=== PATIENT | female | born 1940 | race Caucasian/White ===

== ENCOUNTER 2019-06-26 15:33 | Emergency (ER) | payer MEDICARE, OTHER ==
[~2019-06-26] VITALS: Ht 160 cm; Wt 65.8 kg
[~2019-06-26 15:33] MED LIST: ACET325 PO; ALBU90OI61 INH; ALPR.25 PO; ANTIBIOTIC; ASCO500 PO; ASPI81EC PO; BUME2 PO; CLIN300 PO; CODACE30 PO; CRUTCH4 XX; Coumadin2 MG PO; DOCU100 PO; ENOX100I SC; FERR325 PO; FLUSAL2505 INH; HYDR1TAB94 PO; IBUP800 PO; LEVSOD88 PO; LORA.5 PO; METO25ER PO; METRIBP PO; MULVITMINF PO; NEBI5 PO; Norco 5-325 Ta1 EACH PO; POTCHL20ER PO; SERT25 PO; THYROID; TYLENOL; VITS; WARF2 PO; WARF3 PO; [UNRECOGNIZED DRUG - REMARK]
[2019-06-26 16:56] LABS: BASOPHILS PERCENT AUTO 1 % (0-2); EOSINOPHILS ABSOLUTE AUTO 0.23 K/mm3 (0.00-0.68); EOSINOPHILS PERCENT AUTO 3 % (0-6); Hematocrit 40.2 % (33.0-51.0); Hemoglobin 13.1 g/dL (11.5-16.0); IMMATURE GRAN ABSOLUTE AUTO 0.04 K/mm3 (0.00-0.10); IMMATURE GRAN PERCENT AUTO 1 % (0-1); LYMPHOCYTES ABSOLUTE AUTO 2.37 K/mm3 (0.84-5.20); LYMPHOCYTES PERCENT AUTO 32 % (21-46); MONOCYTES ABSOLUTE AUTO 0.86 K/mm3 (0.16-1.47); MONOCYTES PERCENT AUTO 12 % (4-13); Mean Corpuscular HGB 33.1 pg (26.0-34.0); Mean Corpuscular HGB Conc 32.6 g/dL (31.5-36.5); Mean Corpuscular Volume 102 fL (80-100); Mean Platelet Volume 10.7 fL (9.1-12.4); NEUTROPHILS ABSOLUTE AUTO 3.79 K/mm3 (1.96-9.15); NEUTROPHILS PERCENT AUTO 51 % (41-73); Platelet Count 274 K/mm3 (150-400); RDW Coefficient Variation 12.8 % (11.7-14.2); RDW Standard Deviation 47.9 fL (35.1-46.3); Red Blood Cell Count 3.96 M/mm3 (3.80-5.20); White Blood Cell Count 7.39 K/mm3 (4.00-11.30)
[2019-06-26 17:20] LABS: Alanine Aminotransfer (ALT/SGP 34 U/L (12-78); Albumin, Blood 3.9 g/dL (3.4-5.0); Albumin/Globulin Ratio 1.1 (0.8-1.8); Alk Phos 117 U/L (50-136); Anion Gap 4 mmol/L (6-16); Aspartate Aminotrans (AST/SGOT 30 U/L (12-37); Bilirubin, Total 0.2 mg/dL (0.1-1.0); Blood Urea Nitrogen 23 mg/dL (8-24); CO2, Blood 30 mmol/L (21-32); Calcium, Blood 9.2 mg/dL (8.5-10.1); Chloride, Blood 102 mmol/L (98-108); Creatinine, Blood 0.88 mg/dL (0.40-1.00); Globulin, Blood 3.5 g/dL (2.2-4.0); Glomerular Filtration Rate >60 (60-); Glucose, Blood 95 mg/dL (70-99); Sodium, Blood 136 mmol/L (136-145); Total Protein, Blood 7.4 g/dL (6.4-8.2); Troponin I 0.382 ng/mL (0.000-0.040)
[2019-06-26] MEDS ORDERED: Primidone50 MG PO (17:51)
[2019-06-26 18:06] LABS: Source, Urine Clean Catch
[2019-06-26 18:12] LABS: Bilirubin, Urine Neg (Neg); Blood, Urine Neg (Neg); Glucose Qualitative, Urine Neg (Neg); Ketones, Urine Neg (Neg); Leukocyte Esterase, Urine 1+ (Neg); Nitrite, Urine Neg (Neg); Protein, Urine Neg (Neg); Urobilinogen, Urine NORM (Normal)
[2019-06-26 18:30] LABS: Appearance, Urine Clear (Clear); Color, Urine Yellow (P-Yellow)
[2019-06-26 18:35] LABS: Mucus Light (0-Heavy)
[2019-06-26 18:36] LABS: Bacteria Few /hpf; Red Blood Cells, Urine 0-2 /hpf (0-2); Squamous Epithelial Cells Few /hpf (Few)
== END 2019-06-26 20:46 | disposition home or self-care (01) ==
LOC: ER 15:33
PROVIDERS: Physician Assistant
DX: R53.1 Weakness (principal); W18.30XA Fall on same level, unspecified, initial encounter; Z88.0 Allergy status to penicillin; Z88.1 Allergy status to other antibiotic agents; Z79.899 Other long term (current) drug therapy; Z79.82 Long term (current) use of aspirin; I48.91 Unspecified atrial fibrillation; E03.9 Hypothyroidism, unspecified; I25.10 Atherosclerotic heart disease of native coronary artery without angina pectoris; Z79.01 Long term (current) use of anticoagulants
CPT/HCPCS: 36415; 70450; 71046; 80053; 81001; 84484; 85025; 87086; 93005; 93010; 99284-25

== ENCOUNTER → 2019-11-05 | Outpatient (CLI) | payer MEDICARE, OTHER ==
[~2019-11-05] MED LIST changes: +Primidone50 MG PO
[2019-11-06 10:36] LABS: Candida species (DNA Probe) Negative (NEGATIVE); G. vaginalis (DNA Probe) Negative (NEGATIVE); T. vaginalis (DNA Probe) Negative (NEGATIVE)
== END ==
LOC: LAB SHORT 15:00 → LAB 15:00
PROVIDERS: Obstetrics & Gynecology
DX: N76.0 Acute vaginitis (principal)
CPT/HCPCS: 87480; 87510; 87660

== ENCOUNTER → 2021-07-01 | Outpatient (CLI) | payer MEDICARE, OTHER ==
[2021-07-01 19:26] LABS: BASOPHILS ABSOLUTE AUTO 0.07 K/mm3 (0.00-0.23); BASOPHILS PERCENT AUTO 1 % (0-2); EOSINOPHILS ABSOLUTE AUTO 0.16 K/mm3 (0.00-0.68); EOSINOPHILS PERCENT AUTO 1 % (0-6); Hematocrit 34.5 % (33.0-51.0); Hemoglobin 12.2 g/dL (11.5-16.0); IMMATURE GRAN ABSOLUTE AUTO 0.07 K/mm3 (0.00-0.10); IMMATURE GRAN PERCENT AUTO 1 % (0-1); LYMPHOCYTES ABSOLUTE AUTO 0.74 K/mm3 (0.84-5.20); LYMPHOCYTES PERCENT AUTO 6 % (21-46); MONOCYTES PERCENT AUTO 8 % (4-13); Mean Corpuscular HGB 36.7 pg (26.0-34.0); Mean Corpuscular HGB Conc 35.4 g/dL (31.5-36.5); Mean Corpuscular Volume 104 fL (80-100); Mean Platelet Volume 11.5 fL (9.1-12.4); NEUTROPHILS ABSOLUTE AUTO 9.55 K/mm3 (1.96-9.15); NEUTROPHILS PERCENT AUTO 83 % (41-73); Platelet Count 186 K/mm3 (150-400); RDW Coefficient Variation 13.2 % (11.7-14.2); RDW Standard Deviation 48.6 fL (35.1-46.3); Red Blood Cell Count 3.32 M/mm3 (3.80-5.20); White Blood Cell Count 11.49 K/mm3 (4.00-11.30)
[2021-07-01 19:46] LABS: Alanine Aminotransfer (ALT/SGP 57 U/L (12-78); Albumin, Blood 3.1 g/dL (3.4-5.0); Albumin/Globulin Ratio 0.8 (0.8-1.8); Alk Phos 122 U/L (50-136); Anion Gap 6 mmol/L (6-16); Aspartate Aminotrans (AST/SGOT 52 U/L (12-37); Bilirubin, Total 0.5 mg/dL (0.1-1.0); Blood Urea Nitrogen 25 mg/dL (8-24); Bun/Creatinine Ratio 29.4 (12.0-20.0); CO2, Blood 26 mmol/L (21-32); Calcium, Blood 8.7 mg/dL (8.5-10.1); Chloride, Blood 105 mmol/L (98-108); Creatinine, Blood 0.85 mg/dL (0.40-1.00); Globulin, Blood 3.7 g/dL (2.2-4.0); Glomerular Filtration Rate >60 (60-); Glucose, Blood 161 mg/dL (70-99); Potassium, Blood 3.7 mmol/L (3.5-5.5); Sodium, Blood 137 mmol/L (136-145); Total Protein, Blood 6.8 g/dL (6.4-8.2)
== END | disposition home or self-care (01) ==
LOC: LAB 16:00 → LAB SHORT 16:00
PROVIDERS: Internal Medicine
DX: I10 Essential (primary) hypertension (principal); R19.7 Diarrhea, unspecified
CPT/HCPCS: 80053; 85025

== ENCOUNTER → 2021-07-05 | Outpatient (CLI) | payer MEDICARE, OTHER ==
[2021-07-05 19:42] LABS: Appearance, Urine Clear (Clear); Bilirubin, Urine Neg (Neg); Blood, Urine Neg (Neg); Color, Urine Yellow (P-Yellow); Glucose Qualitative, Urine Neg (Neg); Ketones, Urine Neg (Neg); Leukocyte Esterase, Urine 1+ (Neg); Nitrite, Urine Neg (Neg); Protein, Urine 2+ (Neg); Specific Gravity, Urine 1.005 (1.003-1.022); Urobilinogen, Urine 1+ (Normal)
[2021-07-05 19:56] LABS: Bacteria Few /hpf; Red Blood Cells, Urine 0-2 /hpf (0-2); Squamous Epithelial Cells Few /hpf (Few); White Blood Cells, Urine 0-2 /hpf (0-5)
== END | disposition home or self-care (01) ==
LOC: EDSTATUS 15:25 → LAB SHORT 16:22 → LAB 16:22
PROVIDERS: Internal Medicine
DX: R30.0 Dysuria (principal)
CPT/HCPCS: 81001; 87086

== ENCOUNTER 2022-06-27 01:23 | Emergency (ER) | payer MEDICARE, OTHER ==
[~2022-06-27] VITALS: Ht 160 cm; Wt 60.8 kg
[2022-06-27 02:01] LABS: BASOPHILS ABSOLUTE AUTO 0.06 K/mm3 (0.00-0.23); BASOPHILS PERCENT AUTO 1 % (0-2); EOSINOPHILS ABSOLUTE AUTO 0.24 K/mm3 (0.00-0.68); EOSINOPHILS PERCENT AUTO 2 % (0-6); Hematocrit 38.1 % (33.0-51.0); IMMATURE GRAN ABSOLUTE AUTO 0.03 K/mm3 (0.00-0.10); IMMATURE GRAN PERCENT AUTO 0 % (0-1); LYMPHOCYTES PERCENT AUTO 8 % (21-46); MONOCYTES ABSOLUTE AUTO 0.85 K/mm3 (0.16-1.47); MONOCYTES PERCENT AUTO 7 % (4-13); Mean Corpuscular HGB 33.9 pg (26.0-34.0); Mean Corpuscular HGB Conc 34.1 g/dL (31.5-36.5); Mean Corpuscular Volume 99 fL (80-100); Mean Platelet Volume 10.7 fL (9.1-12.4); NEUTROPHILS ABSOLUTE AUTO 9.51 K/mm3 (1.96-9.15); NEUTROPHILS PERCENT AUTO 82 % (41-73); Platelet Count 204 K/mm3 (150-400); RDW Coefficient Variation 13.5 % (11.7-14.2); RDW Standard Deviation 49.1 fL (35.1-46.3); Red Blood Cell Count 3.84 M/mm3 (3.80-5.20); White Blood Cell Count 11.59 K/mm3 (4.00-11.30)
[2022-06-27 02:19] LABS: Albumin, Blood 3.4 g/dL (3.4-5.0); Albumin/Globulin Ratio 0.9 (0.8-1.8); Bilirubin, Total 0.5 mg/dL (0.1-1.0); Bun/Creatinine Ratio 27.9 (12.0-20.0); Creatinine, Blood 0.86 mg/dL (0.40-1.00); Globulin, Blood 3.8 g/dL (2.2-4.0); Potassium, Blood 3.7 mmol/L (3.5-5.5); Total Protein, Blood 7.2 g/dL (6.4-8.2)
[2022-06-27 02:21] LABS: Source, Urine Clean Catch
[2022-06-27] MEDS ORDERED: ZOLOFT50 MG PO (02:23)
[2022-06-27 02:36] LABS: Influenza A, PCR NEGATIVE (NEGATIVE); Influenza B, PCR NEGATIVE (NEGATIVE); Resp Syncytial Virus, PCR NEGATIVE (NEGATIVE); SARS-Cov-2 (COVID-19) PCR, MMC NEGATIVE (NEGATIVE)
[2022-06-27 02:38] LABS: Appearance, Urine Clear (Clear); Bilirubin, Urine Neg (Neg); Blood, Urine 2+ (Neg); Color, Urine Yellow (P-Yellow); Glucose Qualitative, Urine Neg (Neg); Ketones, Urine Neg (Neg); Leukocyte Esterase, Urine Neg (Neg); Nitrite, Urine Neg (Neg); Protein, Urine 1+ (Neg); Specific Gravity, Urine 1.015 (1.003-1.022); Urobilinogen, Urine NORM (Normal)
[2022-06-27 02:52] LABS: Bacteria Few /hpf; Squamous Epithelial Cells Few /hpf (Few); White Blood Cells, Urine 0-2 /hpf (0-5)
[2022-06-27 03:39] LABS: Magnesium, Blood 2.5 mg/dL (1.6-2.4)
[2022-06-27 04:20] LABS: International Normalized Ratio 3.52
== END 2022-06-27 06:31 | disposition home or self-care (01) ==
LOC: ER 01:23
PROVIDERS: Student in an Organized Health Care Education/Training Program
DX: N39.0 Urinary tract infection, site not specified (principal); E86.0 Dehydration; E03.9 Hypothyroidism, unspecified; I25.10 Atherosclerotic heart disease of native coronary artery without angina pectoris; I48.91 Unspecified atrial fibrillation; Z95.1 Presence of aortocoronary bypass graft; Z79.01 Long term (current) use of anticoagulants; Z79.899 Other long term (current) drug therapy; Z95.0 Presence of cardiac pacemaker; Z88.0 Allergy status to penicillin; Z88.1 Allergy status to other antibiotic agents; Z20.822 Contact with and (suspected) exposure to COVID-19
CPT/HCPCS: 0241U; 36415; 71045; 80053; 81001; 83605; 83735; 84145; 84484; 85025; 85610; 93005; 93010; J1885; J7030

== ENCOUNTER → 2022-07-11 | Outpatient (CLI) | payer MEDICARE, OTHER ==
[~2022-07-11] MED LIST changes: +ZOLOFT50 MG PO
== END ==
LOC: LAB SHORT 15:42 → LAB 15:42
DX: R30.0 Dysuria (principal)
CPT/HCPCS: 87086

== ENCOUNTER 2022-09-29 17:16 | Observation (INO) | payer MEDICARE, OTHER ==
[~2022-09-29] VITALS: Ht 157.5 cm; Wt 86.2 kg
[2022-09-29 17:54] LABS: BASOPHILS ABSOLUTE AUTO 0.07 K/mm3 (0.00-0.23); BASOPHILS PERCENT AUTO 1 % (0-2); EOSINOPHILS ABSOLUTE AUTO 0.02 K/mm3 (0.00-0.68); EOSINOPHILS PERCENT AUTO 0 % (0-6); Hematocrit 36.4 % (33.0-51.0); Hemoglobin 12.4 g/dL (11.5-16.0); IMMATURE GRAN ABSOLUTE AUTO 0.03 K/mm3 (0.00-0.10); IMMATURE GRAN PERCENT AUTO 0 % (0-1); LYMPHOCYTES ABSOLUTE AUTO 0.78 K/mm3 (0.84-5.20); LYMPHOCYTES PERCENT AUTO 10 % (21-46); MONOCYTES ABSOLUTE AUTO 0.97 K/mm3 (0.16-1.47); MONOCYTES PERCENT AUTO 13 % (4-13); Mean Corpuscular HGB Conc 34.1 g/dL (31.5-36.5); Mean Corpuscular Volume 100 fL (80-100); Mean Platelet Volume 10.8 fL (9.1-12.4); NEUTROPHILS ABSOLUTE AUTO 5.67 K/mm3 (1.96-9.15); NEUTROPHILS PERCENT AUTO 75 % (41-73); Platelet Count 172 K/mm3 (150-400); RDW Coefficient Variation 13.8 % (11.7-14.2); RDW Standard Deviation 50.5 fL (35.1-46.3); Red Blood Cell Count 3.65 M/mm3 (3.80-5.20); White Blood Cell Count 7.54 K/mm3 (4.00-11.30)
[2022-09-29 18:15] LABS: Alanine Aminotransfer (ALT/SGP 37 U/L (12-78); Albumin, Blood 3.4 g/dL (3.4-5.0); Alk Phos 177 U/L (50-136); Anion Gap 6 mmol/L (6-16); Aspartate Aminotrans (AST/SGOT 38 U/L (12-37); Bilirubin, Total 0.6 mg/dL (0.1-1.0); Blood Urea Nitrogen 24 mg/dL (8-24); Bun/Creatinine Ratio 27.6 (12.0-20.0); CO2, Blood 28 mmol/L (21-32); Calcium, Blood 8.9 mg/dL (8.5-10.1); Chloride, Blood 104 mmol/L (98-108); Creatinine, Blood 0.87 mg/dL (0.40-1.00); Globulin, Blood 3.5 g/dL (2.2-4.0); Glomerular Filtration Rate 68 (60-); Glucose, Blood 133 mg/dL (70-99); Potassium, Blood 4.6 mmol/L (3.5-5.5); Sodium, Blood 138 mmol/L (136-145); Total Protein, Blood 6.9 g/dL (6.4-8.2)
[2022-09-29 18:28] LABS: Influenza B, PCR NEGATIVE (NEGATIVE); Resp Syncytial Virus, PCR NEGATIVE (NEGATIVE); SARS-Cov-2 (COVID-19) PCR, MMC NEGATIVE (NEGATIVE)
[2022-09-29 18:34] LABS: Influenza A, PCR POSITIVE (NEGATIVE)
[2022-09-29 18:55] LABS: International Normalized Ratio 2.76; Prothrombin Time Results 27.1 Sec (9.7-11.5)
[2022-09-29 19:28] LABS: Source, Urine Straight Cath
[2022-09-29 19:34] LABS: Appearance, Urine Clear (Clear); Bilirubin, Urine Neg (Neg); Blood, Urine 1+ (Neg); Glucose Qualitative, Urine Neg (Neg); Ketones, Urine Neg (Neg); Leukocyte Esterase, Urine Neg (Neg); Nitrite, Urine Neg (Neg); Protein, Urine 3+ (Neg); Specific Gravity, Urine 1.015 (1.003-1.022); Urobilinogen, Urine 1+ (Normal); pH, Urine 6.5 (5.0-8.0)
[2022-09-29 19:47] LABS: Color, Urine Yellow (P-Yellow)
[2022-09-29 19:49] LABS: Bacteria Few /hpf; Hyaline Casts 0-2 /lpf (0-2); Squamous Epithelial Cells Not Seen /hpf (Few); White Blood Cells, Urine 0-2 /hpf (0-5)
--- NOTE | 2022-09-30 03:18 | NUR ---
Patient resting comfortably in bed, no complaints of pain or discomfort, critical lab called to hospitalist earlier in evening, critical lab is trending towards normal limit.
[2022-09-30 05:02] LABS: BASOPHILS ABSOLUTE AUTO 0.05 K/mm3 (0.00-0.23); BASOPHILS PERCENT AUTO 1 % (0-2); EOSINOPHILS ABSOLUTE AUTO 0.01 K/mm3 (0.00-0.68); EOSINOPHILS PERCENT AUTO 0 % (0-6); Hematocrit 32.9 % (33.0-51.0); Hemoglobin 10.9 g/dL (11.5-16.0); IMMATURE GRAN ABSOLUTE AUTO 0.01 K/mm3 (0.00-0.10); IMMATURE GRAN PERCENT AUTO 0 % (0-1); LYMPHOCYTES ABSOLUTE AUTO 1.02 K/mm3 (0.84-5.20); LYMPHOCYTES PERCENT AUTO 24 % (21-46); MONOCYTES ABSOLUTE AUTO 0.67 K/mm3 (0.16-1.47); MONOCYTES PERCENT AUTO 16 % (4-13); Mean Corpuscular HGB 33.7 pg (26.0-34.0); Mean Corpuscular HGB Conc 33.1 g/dL (31.5-36.5); Mean Corpuscular Volume 102 fL (80-100); Mean Platelet Volume 10.9 fL (9.1-12.4); NEUTROPHILS ABSOLUTE AUTO 2.49 K/mm3 (1.96-9.15); NEUTROPHILS PERCENT AUTO 59 % (41-73); Platelet Count 141 K/mm3 (150-400); RDW Coefficient Variation 14.1 % (11.7-14.2); Red Blood Cell Count 3.23 M/mm3 (3.80-5.20); White Blood Cell Count 4.25 K/mm3 (4.00-11.30)
[2022-09-30 05:32] LABS: Albumin, Blood 2.7 g/dL (3.4-5.0); Anion Gap 6 mmol/L (6-16); Blood Urea Nitrogen 24 mg/dL (8-24); Bun/Creatinine Ratio 28.7 (12.0-20.0); CO2, Blood 27 mmol/L (21-32); Calcium, Blood 7.9 mg/dL (8.5-10.1); Chloride, Blood 106 mmol/L (98-108); Creatinine, Blood 0.84 mg/dL (0.40-1.00); Glomerular Filtration Rate 71 (60-); Glucose, Blood 99 mg/dL (70-99); Phosphorus, Blood 4.3 mg/dL (2.5-4.9); Sodium, Blood 139 mmol/L (136-145)
[2022-09-30 05:35] LABS: International Normalized Ratio 2.2
[2022-09-30 06:02] LABS: Prothrombin Time Results 21.9 Sec (9.7-11.5)
[2022-09-30] MEDS ORDERED: Tamiflu30 MG PO (14:11)
--- NOTE | 2022-09-30 15:15 | NUR ---
PATIENT DISCHARGED TO HOME ACCOMPANIED BY SPOUSE. IV SALINE LOCK AND TELEMETRY REMOVED WITHOUT INCIDENT. PT AND SPOUSE VERBALIZED UNDERSTANDING OF D/C INSTRUCTIONS, TO RN ACUTE DIALYSIS [facility] AT [facility] AND TAKE NEXT DOSE TONIGHT. DRESSED IN OWN CLOTHING. OFF UNIT VIA W/C AT 1506. NO BELONGINGS LEFT BEHIND IN ROOM.
[2022-10-25] MEDS ORDERED: ASPI81CH PO (17:29)
[2022-10-25] MEDS ORDERED: LOSA25 PO (17:31)
[2022-10-25] MEDS ORDERED: EZET10 PO (17:33)
== END 2022-09-30 15:11 | disposition home or self-care (01) ==
LOC: MEDS 22:37
PROVIDERS: Emergency Medicine; Student in an Organized Health Care Education/Training Program; ADMIT Family Medicine
DX: J10.1 Influenza due to other identified influenza virus with other respiratory manifestations (principal); R77.8 Other specified abnormalities of plasma proteins; I25.10 Atherosclerotic heart disease of native coronary artery without angina pectoris; E03.9 Hypothyroidism, unspecified; F32.A Depression, unspecified; Z88.0 Allergy status to penicillin; Z88.8 Allergy status to other drugs, medicaments and biological substances; I48.91 Unspecified atrial fibrillation; Z51.81 Encounter for therapeutic drug level monitoring; Z79.01 Long term (current) use of anticoagulants
CPT/HCPCS: 0241U; 36415; 71045; 80053; 80069; 81001; 83605; 83690; 83880; 84484; 85025; 85610; 87040; 93005; 93010; 93306; 94640; 94664; 94760; 99285-25; A9270; G0378; J7030

== ENCOUNTER 2022-10-26 06:30 | Day surgery (SDC) | payer MEDICARE, OTHER ==
[~2022-10-26] VITALS: Ht 157.5 cm; Wt 64.0 kg
[~2022-10-26 06:30] MED LIST changes: +ASPI81CH PO; +EZET10 PO; +LOSA25 PO; +Tamiflu30 MG PO
[2022-10-26 07:52] LABS: International Normalized Ratio 2.6; Prothrombin Time Results 25.6 Sec (9.7-11.5)
--- NOTE | 2022-10-26 16:28 | NUR ---
1600 PATIENT RETURNED FROM THE CATHLAB S/P PPM GEN CHANGE WITH DR. SINGH. PATIENT IN A RECLINER AND AAO X 3, PLACED ON THE MONITOR. VVS. NO PAIN NOTED. CALLL LIGHT IN REACH.
--- NOTE | 2022-10-26 16:29 | NUR ---
1620 LATE LUNCH TRAY SERVED AND HERE AND SAT WITH THE PATIENT WHILE SHE ATE. DR. SINGH AT THE BEDSIDE BRIEFLY AND PATIENT WILL RESUME ALL MEDICATIONS. PATIENT HAS WOUND CHECK AND PACER CHECK APPOINTMENTS MADE AND REVIEWED WITH THE PATIENT. ANDRAE EM REP AT THE BEDSDIE AND SPOKE WITH THE PATIENT REGARDING THE BEDSDIE MONITOR. NO FURTHER QUESTIONS NOTED FROM [facility] PATIENT.
--- NOTE | 2022-10-26 17:44 | NUR ---
1645 NOTED THAT THE LEFT PPM SITE HAS A FULLNESS TO THE SITE. HELD PRESSURE TO THE SITE AND CALLED DR. SINGH TO THE BEDSIDE. AFTER CONSULTATION PRESSURE DRESSING APPLIED TO THE SITE.
--- NOTE | 2022-10-26 18:03 | NUR ---
1715 PRESSURE DRESSING HOLDING AND NO FURTHER INCREASE IN HEMATOMA NOTED. PIV REMOVED. PRESSURE DRESSING APPLIED. PATIENT'S DAUGHTER HERE AND REVEIWED ALL DISCAHRGED INSTRUCTIONS WITH THE DAUGHTER ALSO. NO FURTHER QUESTIONS. PATIENT DRESSED AND DISCAHRGED HOME.
== END 2022-10-26 23:03 | disposition home or self-care (01) ==
LOC: MHTC 06:30
PROVIDERS: Internal Medicine Cardiovascular Disease
DX: Z45.010 Encounter for checking and testing of cardiac pacemaker pulse generator [battery] (principal); I25.10 Atherosclerotic heart disease of native coronary artery without angina pectoris; I48.91 Unspecified atrial fibrillation; I06.0 Rheumatic aortic stenosis; I13.0 Hypertensive heart and chronic kidney disease with heart failure and stage 1 through stage 4 chronic kidney disease, or unspecified chronic kidney disease; N18.9 Chronic kidney disease, unspecified; I50.32 Chronic diastolic (congestive) heart failure; I27.20 Pulmonary hypertension, unspecified; I05.0 Rheumatic mitral stenosis; E78.5 Hyperlipidemia, unspecified; E03.9 Hypothyroidism, unspecified; Z87.891 Personal history of nicotine dependence; Z79.01 Long term (current) use of anticoagulants; Z88.0 Allergy status to penicillin; Z88.8 Allergy status to other drugs, medicaments and biological substances
CPT/HCPCS: 85610; 99152; 99153; C1786; J1644; J2250; J3010; J3370; J7030; J7040

== ENCOUNTER 2023-02-09 10:13 | Emergency (ER) | payer MEDICARE, OTHER ==
[~2023-02-09] VITALS: Ht 162.6 cm; Wt 64.9 kg
[2023-02-09 11:19] VITALS: BP 94/71
[2023-02-09 12:01] LABS: International Normalized Ratio 2.17; Prothrombin Time Results 21.8 Sec (9.7-11.5)
== END 2023-02-09 12:35 | disposition home or self-care (01) ==
LOC: ER 10:13
PROVIDERS: Emergency Medicine
DX: R04.0 Epistaxis (principal); I25.10 Atherosclerotic heart disease of native coronary artery without angina pectoris; Z95.1 Presence of aortocoronary bypass graft; Z95.2 Presence of prosthetic heart valve; Z95.0 Presence of cardiac pacemaker
CPT/HCPCS: 85610; 85730; 99283

== ENCOUNTER → 2023-10-11 | Outpatient (CLI) | payer MEDICARE, OTHER | LOC: LAB SHORT 12:22 → PLD 12:22 | DX: D48.5 Neoplasm of uncertain behavior of skin (principal) | CPT/HCPCS: 88305 ==

== ENCOUNTER 2024-08-05 11:52 | Inpatient (IN) | payer MEDICARE, OTHER ==
[~2024-08-05] VITALS: Ht 160 cm; Wt 69.4 kg
[~2024-08-05 11:52] MED LIST changes: +BUME1 PO; -BUME2 PO; -FLUSAL2505 INH; +FLUTICASONE-SA1 EAC9 INH; +PRIM250 PO; -Primidone50 MG PO; +SERT100 PO; +WARF6 PO; -ZOLOFT50 MG PO
[2024-08-05] MEDS ORDERED: Morphine Sulfate 4 MG/1 ML Injection IV ONE (12:40)
[2024-08-05] MEDS ORDERED: NS 1,000 ML IV SCH ×2 (12:40→18:00)
[2024-08-05] MEDS ORDERED: EZETIMIBE10 M6 PO (12:48)
[2024-08-05 13:04] LABS: BASOPHILS ABSOLUTE AUTO 0.06 K/mm3 (0.00-0.23); BASOPHILS PERCENT AUTO 1 % (0-2); EOSINOPHILS ABSOLUTE AUTO 0.24 K/mm3 (0.00-0.68); EOSINOPHILS PERCENT AUTO 3 % (0-6); Hematocrit 23.4 % (33.0-51.0); Hemoglobin 7.5 g/dL (11.5-16.0); IMMATURE GRAN ABSOLUTE AUTO 0.04 K/mm3 (0.00-0.10); IMMATURE GRAN PERCENT AUTO 1 % (0-1); LYMPHOCYTES ABSOLUTE AUTO 1.59 K/mm3 (0.84-5.20); LYMPHOCYTES PERCENT AUTO 21 % (21-46); MONOCYTES ABSOLUTE AUTO 0.84 K/mm3 (0.16-1.47); MONOCYTES PERCENT AUTO 11 % (4-13); Mean Corpuscular HGB 34.9 pg (26.0-34.0); Mean Corpuscular HGB Conc 32.1 g/dL (31.5-36.5); Mean Corpuscular Volume 109 fL (80-100); Mean Platelet Volume 10.6 fL (9.1-12.4); NEUTROPHILS PERCENT AUTO 64 % (41-73); NRBC ABSOLUTE 0.02 K/mm3 (0.00-0.02); NRBC Auto 0.3 /100 WBC (0.0-0.2); Platelet Count 185 K/mm3 (150-400); RDW Coefficient Variation 14.6 % (11.7-14.2); RDW Standard Deviation 56.8 fL (35.1-46.3); Red Blood Cell Count 2.15 M/mm3 (3.80-5.20); White Blood Cell Count 7.77 K/mm3 (4.00-11.30)
[2024-08-05 13:24] LABS: Albumin, Blood 3.1 g/dL (3.4-5.0); Albumin/Globulin Ratio 1.1 (0.8-1.8); Bilirubin, Total 0.2 mg/dL (0.1-1.0); Calcium, Blood 8.5 mg/dL (8.5-10.1); Globulin, Blood 2.8 g/dL (2.2-4.0); Magnesium, Blood 2.4 mg/dL (1.6-2.4); Potassium, Blood 3.8 mmol/L (3.5-5.5); Total Protein, Blood 5.9 g/dL (6.4-8.2)
[2024-08-05] MEDS ORDERED: Pantoprazole Sodium 40 MG in NS 50 ML IV SCH (13:55)
[2024-08-05] MEDS ORDERED: Pantoprazole Sodium 40 MG Injection IV ONE (13:55)
[2024-08-05] MEDS ORDERED: HYDROmorphone HCl/Pf 1MG SYR IV ONE (14:10)
[2024-08-05 14:15] LABS: International Normalized Ratio 1.85; Prothrombin Time Results 18.9 Sec (9.7-11.5)
[2024-08-05] MEDS ORDERED: FLU VACC TS2024-25(6MOS UP)/PF 45 MCG/0.5 ML SYRINGE IM ONE (16:35)
[2024-08-05] MEDS ORDERED: Ipratropium/Albuterol SulF 2.5-0.5MG/3 ML Amp INH PRN (16:35)
[2024-08-05 17:01] LABS: Percent Saturation 46.8 % (15.0-50.0)
[2024-08-05] MEDS ORDERED: NS 1,000 ML IV ONE (17:57)
[2024-08-05 20:10] VITALS: BP 148/52
[2024-08-05] MEDS ORDERED: Primidone 50 MG Tab PO SCH (21:00)
[2024-08-05 21:01] VITALS: BP 160/59
[2024-08-05] MEDS ORDERED: HYDROmorphone HCl/Pf 1MG SYR IV PRN (21:40)
[2024-08-05] MEDS ORDERED: Sertraline HCl 50 MG Tab PO SCH (22:00)
[2024-08-06 01:25] LABS: Source, Urine Straight Cath
[2024-08-06 01:38] LABS: Bilirubin, Urine Neg (Neg); Blood, Urine Neg (Neg); Glucose Qualitative, Urine Neg (Neg); Ketones, Urine Neg (Neg); Leukocyte Esterase, Urine Neg (Neg); Nitrite, Urine Neg (Neg); Protein, Urine 1+ (Neg); Urobilinogen, Urine NORM (Normal)
[2024-08-06 01:46] LABS: Appearance, Urine Clear (Clear); Color, Urine Yellow (P-Yellow)
[2024-08-06 02:06] LABS: Hematocrit 28.7 % (33.0-51.0); Hemoglobin 9.5 g/dL (11.5-16.0); Mean Corpuscular HGB 34.1 pg (26.0-34.0); Mean Corpuscular HGB Conc 33.1 g/dL (31.5-36.5); Mean Platelet Volume 10.6 fL (9.1-12.4); NRBC ABSOLUTE 0.03 K/mm3 (0.00-0.02); NRBC Auto 0.3 /100 WBC (0.0-0.2); Platelet Count 166 K/mm3 (150-400); RDW Coefficient Variation 19.1 % (11.7-14.2); RDW Standard Deviation 70.1 fL (35.1-46.3); Red Blood Cell Count 2.79 M/mm3 (3.80-5.20); White Blood Cell Count 9.09 K/mm3 (4.00-11.30)
[2024-08-06 02:10] LABS: Mean Corpuscular Volume 103 fL (80-100)
[2024-08-06 02:21] LABS: International Normalized Ratio 1.95; Prothrombin Time Results 19.9 Sec (9.7-11.5)
[2024-08-06 02:54] VITALS: BP 139/49
[2024-08-06 02:59] LABS: Percent Saturation 27.1 % (15.0-50.0)
[2024-08-06 03:10] LABS: Bun/Creatinine Ratio 35.6 (12.0-20.0); Creatinine, Blood 0.96 mg/dL (0.40-1.00); Potassium, Blood 3.9 mmol/L (3.5-5.5)
--- NOTE | 2024-08-06 04:34 | NUR ---
HEAVY EQUIPMENT ENGINE MECHANIC SUMMARY PT HAS BEEN NPO EXCEPT WATER FOR SCOPE 08/06 TO EVALUATE FOR POSSIBLE GI BLEED. COLLECTED URINE BUT STILL NEED TO COLLECT A STOOL SAMPLE FOR OCCULT STOOL. PT WAS A X1 ASSIST TO BSC WITH FWW, HIGH FALLS RISK. SHE INJURED HER L KNEE DURING ONE OF HER FALLS AT HOME AND HAS BEEN EXPERIENCING R FLANK AND L KNEE PAIN ON AND OFF. 0.5 IV DILAUDID WAS EFFECTIVE FOR PAIN. PT FINISHED 1 UNIT OF BLOOD AND REMAINS ON A PROTONIX GTT.
[2024-08-06] MEDS ORDERED: Levothyroxine Sodium 0.088 MG Tab PO SCH (06:00)
[2024-08-06 07:09] VITALS: BP 142/51
[2024-08-06] MEDS ORDERED: Ezetimibe 10 MG Tab PO SCH (09:00)
[2024-08-06] MEDS ORDERED: Losartan Potassium 25 MG Tab PO SCH (09:00)
[2024-08-06] MEDS ORDERED: Aspirin 81 MG Chew PO SCH (09:00)
[2024-08-06] MEDS ORDERED: Bumetanide 1 MG Tab PO SCH (09:00)
[2024-08-06] MEDS ORDERED: Sertraline HCl 50 MG Tab PO SCH (09:00)
[2024-08-06] MEDS ORDERED: Albuterol 2.5 MG/3 ML VIAL INH PRN (12:40)
[2024-08-06] MEDS ORDERED: Ipratropium/Albuterol SulF 2.5-0.5MG/3 ML Amp INH SCH (12:40)
[2024-08-06] MEDS ORDERED: NS 500 ML IV SCH (13:20)
[2024-08-06 13:42] VITALS: BP 166/61
--- NOTE | 2024-08-06 13:46 | NUR ---
PT TO SDS FROM ROOM [address] SEVILLA. CHART REVIEWED. PLAN OF CARE DISCUSSED WITH PT.
--- NOTE | 2024-08-06 13:47 | NUR ---
PT TO DAY SURGERY WITH 20G IN LEFT AC
--- NOTE | 2024-08-06 14:30 | NUR ---
08/06/24 1430 Yen Mccord History, Chart, Medications and Allergies reviewed before start of procedure. MONITOR INTACT WITH CONTINUOUS PULSE OXIMETRY, CONTINUOUS END TITAL CO2, AND INTERMITTENT BLOOD PRESSURE. SEE DR. DE LA TORRE ANSESTHESIA RECORD.
[2024-08-06 15:16] VITALS: BP 105/82
--- NOTE | 2024-08-06 15:27 | NUR ---
PATIENT BACK ON FLOOR FROM SURGERY FOR EGD. PATIENT UP IN BED RESTING COMFORTABLY WITH SPOUSE AT SIDE. SCD IN PLACE WITH LEGS ELEVATED.
[2024-08-06] MEDS ORDERED: Warfarin Sodium 5 MG Tab PO ONE (15:30)
[2024-08-06] MEDS ORDERED: Warfarin Sodium 2 MG Tab PO ONE (15:30)
[2024-08-06] MEDS ORDERED: Warfarin Sodium 4 MG Tab PO ONE (15:55)
--- NOTE | 2024-08-06 17:01 | NUR ---
PATIENT UP IN BED A/O X4. EGD COMPLETED, COUMADIN RESTARTED, NOTED 1+ EDEMA ON R/L LOWER LEGS, SCD IN PLACE. DIET ORDER CHANGED TO LACTOSE RESTRICTION. TELE SHOWES RATE OF 60/VENTRICULAR PACED. HGB UP FROM 7.5 TO 9.5 AFTER 1U PRBC LAST NIGHT. NOTED BRUISING FROM FALLS AT HOME SEE PICTURES ON CHART. PATIENT REQUIRES SBA WITH FWW NORMALLY INDEPENDENT AT BASELINE. LIVES WITH SPOUSE IN HOME. DISHCHARGE PLAN TO DISCAHRGE TO HOME WITH SPOUSE WHEN READY.
[2024-08-06] MEDS ORDERED: Acetaminophen 500 MG Tab PO PRN (17:50)
[2024-08-06] MEDS ORDERED: Polyethylene Glycol 3350 17 gm PO ONE (18:20)
[2024-08-06] MEDS ORDERED: Sennosides 8.6 MG Tab PO ONE (18:20)
[2024-08-06 19:46] VITALS: BP 147/46
[2024-08-06] MEDS ORDERED: Docusate Sodium 100 MG Cap PO SCH (21:00)
[2024-08-06] MEDS ORDERED: Baclofen 10 MG Tab PO ONE (21:45)
[2024-08-07 02:17] VITALS: BP 142/62
[2024-08-07 05:07] LABS: International Normalized Ratio 2.22; Prothrombin Time Results 22.4 Sec (9.7-11.5)
[2024-08-07] MEDS ORDERED: Omeprazole 20 MG CapCR PO SCH (06:00)
--- NOTE | 2024-08-07 07:28 | NUR ---
PREPPER SUMMARY NO ACUTE EVENTS OVERNIGHT. GOT A ONE TIME ORDER FOR A MUSCLE RELAXER FOR PT BECAUSE SHE IS EXPERIENCING MUSCLE SPASMS IN HER HIP/BACK AFTER HER FALLS AT HOME. THE MUSCLE RELAXER WORKED BETTER FOR HER THAN ANYTHING ELSE WE HAVE TRIED AND SHE WILL BE ASKING HER MD FOR AN ORDER FOR A MUSCLE RELAXER TO TAKE PRN FOR A COUPLE DAYS. NO SIGNS OR SYMPTOMS OF BLEEDING. STOOL SAMPLE NOT COLLECTED PT DIDNT HAVE A BOWEL MOVEMENT OVERNIGHT. PT IS GETTING BOWEL CARE.
[2024-08-07 07:48] VITALS: BP 147/116
[2024-08-07 07:53] VITALS: BP 172/51
[2024-08-07 07:55] VITALS: BP 162/61
[2024-08-07] MEDS ORDERED: ACET500 PO (11:30)
[2024-08-07] MEDS ORDERED: DOCU100 PO (11:31)
[2024-08-07] MEDS ORDERED: OMEP20ER PO (11:33)
[2024-08-07] MEDS ORDERED: BACLOFEN5 M1 PO (11:35)
--- NOTE | 2024-08-07 15:08 | NUR ---
PATIENT DISCHARGE INSTURCTION COMPLETED WITH PATIETN AND SPOUSE. REVIEWED ALL MEDICAIOTNS, REFERRALS TO HOME HEALTH AND EDUCATION AROUND FALL PREVENTION. PATIENT VERBALIZED UNDERSTANDING. PATIENT SPOUSE TO DRIVE PATIENT HOME IN POV AND PER SPOUSE HAS 4WW WALKER PATIENT WILL USE AT HOME.
[2024-08-07] MEDS ORDERED: Warfarin Sodium 4 MG Tab PO ONE (18:00)
== END 2024-08-07 14:58 | disposition home health service (06) | DRG 812 ==
LOC: ER 11:52 → ERHOLD 11:53 → MEDS 11:53
PROVIDERS: Emergency Medicine; Internal Medicine; Internal Medicine Gastroenterology; ADMIT Internal Medicine
PROC: 30233N1 Transfusion of Nonautologous Red Blood Cells into Peripheral Vein, Percutaneous Approach (ICD-10-PCS; 2024-08-05)
PROC: 0DJD8ZZ Inspection of Lower Intestinal Tract, Via Natural or Artificial Opening Endoscopic (ICD-10-PCS; principal; 2024-08-06 16:00)
DX: D62 Acute posthemorrhagic anemia (principal); I13.0 Hypertensive heart and chronic kidney disease with heart failure and stage 1 through stage 4 chronic kidney disease, or unspecified chronic kidney disease; I48.20 Chronic atrial fibrillation, unspecified; I50.42 Chronic combined systolic (congestive) and diastolic (congestive) heart failure; E86.0 Dehydration; F32.A Depression, unspecified; J45.909 Unspecified asthma, uncomplicated; E78.5 Hyperlipidemia, unspecified; N18.30 Chronic kidney disease, stage 3 unspecified; D63.1 Anemia in chronic kidney disease; G25.0 Essential tremor; E03.9 Hypothyroidism, unspecified; Z95.2 Presence of prosthetic heart valve; I25.10 Atherosclerotic heart disease of native coronary artery without angina pectoris; Z95.1 Presence of aortocoronary bypass graft; Z88.1 Allergy status to other antibiotic agents; K21.9 Gastro-esophageal reflux disease without esophagitis; R53.1 Weakness; S30.1XXA Contusion of abdominal wall, initial encounter; W18.30XA Fall on same level, unspecified, initial encounter; S80.02XA Contusion of left knee, initial encounter; Z88.0 Allergy status to penicillin; I25.2 Old myocardial infarction; Z79.82 Long term (current) use of aspirin; Z86.79 Personal history of other diseases of the circulatory system; Z85.3 Personal history of malignant neoplasm of breast; Z90.12 Acquired absence of left breast and nipple; Z92.21 Personal history of antineoplastic chemotherapy; Z92.3 Personal history of irradiation; Z85.828 Personal history of other malignant neoplasm of skin; Z87.81 Personal history of (healed) traumatic fracture; Z79.899 Other long term (current) drug therapy; Z90.722 Acquired absence of ovaries, bilateral; Z90.79 Acquired absence of other genital organ(s); Z90.710 Acquired absence of both cervix and uterus; Z98.42 Cataract extraction status, left eye; Z98.41 Cataract extraction status, right eye; Z87.891 Personal history of nicotine dependence; Z79.890 Hormone replacement therapy; Z79.01 Long term (current) use of anticoagulants; Z95.0 Presence of cardiac pacemaker; Z98.51 Tubal ligation status
CPT/HCPCS: 36415; 36430; 70450; 71260; 72125; 73562-LT; 74177; 80048; 80053; 82607; 82728; 82746; 83540; 83550; 83735; 84484; 85025; 85027; 85610; 86850; 86900; 86901; 86923; 93005; 93010; 94640; 94760; 96361; 96365-59; 96366; 96375-59; 96376; 97110; 97162; 97167; 97530; 97535; 99285-25; A9270; G0378; J1171; J2270; J2470; J7030; J7040; P9016; Q9967

== ENCOUNTER → 2024-10-24 | Outpatient (CLI) | payer MEDICARE, OTHER ==
[~2024-10-24] MED LIST changes: +ACET500 PO; +BACLOFEN5 M1 PO; +EZETIMIBE10 M6 PO; +OMEP20ER PO
[2024-10-24 15:48] LABS: BASOPHILS ABSOLUTE AUTO 0.09 K/mm3 (0.00-0.23); BASOPHILS PERCENT AUTO 2 % (0-2); EOSINOPHILS ABSOLUTE AUTO 0.19 K/mm3 (0.00-0.68); EOSINOPHILS PERCENT AUTO 3 % (0-6); Hematocrit 37.8 % (33.0-51.0); Hemoglobin 12.7 g/dL (11.5-16.0); IMMATURE GRAN ABSOLUTE AUTO 0.02 K/mm3 (0.00-0.10); IMMATURE GRAN PERCENT AUTO 0 % (0-1); LYMPHOCYTES ABSOLUTE AUTO 1.73 K/mm3 (0.84-5.20); LYMPHOCYTES PERCENT AUTO 28 % (21-46); MONOCYTES ABSOLUTE AUTO 0.74 K/mm3 (0.16-1.47); MONOCYTES PERCENT AUTO 12 % (4-13); Mean Corpuscular HGB 34.9 pg (26.0-34.0); Mean Corpuscular HGB Conc 33.6 g/dL (31.5-36.5); Mean Corpuscular Volume 104 fL (80-100); Mean Platelet Volume 11.3 fL (9.1-12.4); NEUTROPHILS ABSOLUTE AUTO 3.36 K/mm3 (1.96-9.15); NEUTROPHILS PERCENT AUTO 55 % (41-73); Platelet Count 207 K/mm3 (150-400); RDW Coefficient Variation 13.3 % (11.7-14.2); Red Blood Cell Count 3.64 M/mm3 (3.80-5.20); White Blood Cell Count 6.13 K/mm3 (4.00-11.30)
[2024-10-24 15:55] LABS: Percent Saturation 56.7 % (15.0-50.0)
[2024-10-26 17:27] LABS: HAPTOGLOBIN <10 mg/dL (30-200)
== END ==
LOC: LAB SHORT 14:22 → LAB 14:22
PROVIDERS: Internal Medicine
DX: E61.1 Iron deficiency (principal); D64.9 Anemia, unspecified; D59.4 Other nonautoimmune hemolytic anemias
CPT/HCPCS: 82728; 83010; 83540; 83550; 85025

== ENCOUNTER 2024-11-03 15:24 | Emergency (ER) | payer MEDICARE, OTHER ==
[~2024-11-03] VITALS: Ht 157.5 cm; Wt 64.4 kg
[2024-11-03 15:51] LABS: BASOPHILS ABSOLUTE AUTO 0.07 K/mm3 (0.00-0.23); BASOPHILS PERCENT AUTO 1 % (0-2); EOSINOPHILS ABSOLUTE AUTO 0.07 K/mm3 (0.00-0.68); EOSINOPHILS PERCENT AUTO 1 % (0-6); Hematocrit 38.4 % (33.0-51.0); Hemoglobin 12.7 g/dL (11.5-16.0); IMMATURE GRAN ABSOLUTE AUTO 0.03 K/mm3 (0.00-0.10); IMMATURE GRAN PERCENT AUTO 0 % (0-1); LYMPHOCYTES ABSOLUTE AUTO 1.02 K/mm3 (0.84-5.20); LYMPHOCYTES PERCENT AUTO 14 % (21-46); MONOCYTES ABSOLUTE AUTO 1.11 K/mm3 (0.16-1.47); MONOCYTES PERCENT AUTO 16 % (4-13); Mean Corpuscular HGB Conc 33.1 g/dL (31.5-36.5); Mean Corpuscular Volume 100 fL (80-100); Mean Platelet Volume 11.1 fL (9.1-12.4); NEUTROPHILS ABSOLUTE AUTO 4.81 K/mm3 (1.96-9.15); NEUTROPHILS PERCENT AUTO 68 % (41-73); Platelet Count 156 K/mm3 (150-400); RDW Coefficient Variation 13.5 % (11.7-14.2); RDW Standard Deviation 49.7 fL (35.1-46.3); Red Blood Cell Count 3.85 M/mm3 (3.80-5.20); White Blood Cell Count 7.11 K/mm3 (4.00-11.30)
[2024-11-03 16:23] LABS: Influenza A, PCR NEGATIVE (NEGATIVE); Influenza B, PCR NEGATIVE (NEGATIVE); Resp Syncytial Virus, PCR NEGATIVE (NEGATIVE)
[2024-11-03 16:32] LABS: Albumin, Blood 3.4 g/dL (3.4-5.0); Albumin/Globulin Ratio 0.9 (0.8-1.8); Bilirubin, Total 0.5 mg/dL (0.1-1.0); Bun/Creatinine Ratio 26.8 (12.0-20.0); Calcium, Blood 8.5 mg/dL (8.5-10.1); Creatinine, Blood 0.93 mg/dL (0.40-1.00); Globulin, Blood 3.6 g/dL (2.2-4.0); Potassium, Blood 3.9 mmol/L (3.5-5.5)
[2024-11-03 17:56] LABS: SARS-Cov-2 (COVID-19) PCR, MMC POSITIVE (NEGATIVE)
[2024-11-03 18:34] VITALS: BP 152/60
== END 2024-11-03 18:34 | disposition home or self-care (01) ==
LOC: ER 15:24
PROVIDERS: Emergency Medicine
DX: U07.1 COVID-19 (principal); I48.91 Unspecified atrial fibrillation; E03.9 Hypothyroidism, unspecified; Z79.01 Long term (current) use of anticoagulants; Z79.51 Long term (current) use of inhaled steroids; Z79.899 Other long term (current) drug therapy; Z88.0 Allergy status to penicillin; Z88.1 Allergy status to other antibiotic agents
CPT/HCPCS: 0241U; 80053; 85025; 93005; 93010; 99285-25

== ENCOUNTER 2025-09-07 21:15 | Emergency (ER) | payer MEDICARE, OTHER ==
[~2025-09-07] VITALS: Ht 157.5 cm; Wt 64.4 kg
[2025-09-07] MEDS ORDERED: HYDROcodone 5-APAP 325 TAB PO ONE (21:50)
[2025-09-07 21:52] LABS: BASOPHILS ABSOLUTE AUTO 0.10 K/mm3 (0.00-0.23); BASOPHILS PERCENT AUTO 2 % (0-2); EOSINOPHILS ABSOLUTE AUTO 0.23 K/mm3 (0.00-0.68); EOSINOPHILS PERCENT AUTO 4 % (0-6); Hematocrit 42.6 % (33.0-51.0); Hemoglobin 14.1 g/dL (11.5-16.0); IMMATURE GRAN ABSOLUTE AUTO 0.03 K/mm3 (0.00-0.10); IMMATURE GRAN PERCENT AUTO 1 % (0-1); LYMPHOCYTES ABSOLUTE AUTO 1.94 K/mm3 (0.84-5.20); LYMPHOCYTES PERCENT AUTO 30 % (21-46); MONOCYTES ABSOLUTE AUTO 0.85 K/mm3 (0.16-1.47); MONOCYTES PERCENT AUTO 13 % (4-13); Mean Corpuscular HGB Conc 33.1 g/dL (31.5-36.5); Mean Corpuscular Volume 101 fL (80-100); NEUTROPHILS ABSOLUTE AUTO 3.41 K/mm3 (1.96-9.15); NEUTROPHILS PERCENT AUTO 52 % (41-73); NRBC ABSOLUTE 0.00 K/mm3 (0.00-0.02); NRBC Auto 0.0 /100 WBC (0.0-0.2); Platelet Count 178 K/mm3 (150-400); RDW Coefficient Variation 13.8 % (11.7-14.2); RDW Standard Deviation 50.9 fL (35.1-46.3)
[2025-09-07 22:06] LABS: Alanine Aminotransfer (ALT/SGP 24.0 U/L (12-78); Albumin, Blood 3.4 g/dL (3.4-5.0); Albumin/Globulin Ratio 0.9 (0.8-1.8); Anion Gap 10.0 mmol/L (3-11); Aspartate Aminotrans (AST/SGOT 29.0 U/L (12-37); Bilirubin, Total 0.4 mg/dL (0.1-1.0); Blood Urea Nitrogen 25.0 mg/dL (8-24); CO2, Blood 28.0 mmol/L (21-32); Calcium, Blood 8.5 mg/dL (8.5-10.1); Chloride, Blood 104.0 mmol/L (98-108); Creatinine, Blood 0.9 mg/dL (0.40-1.00); Globulin, Blood 3.7 g/dL (2.2-4.0); Glucose, Blood 102.0 mg/dL (70-99); Potassium, Blood 4.3 mmol/L (3.5-5.5); Prothrombin Time Results 26.5 Sec (9.7-11.5); Sodium, Blood 138.0 mmol/L (136-145); Total Protein, Blood 7.1 g/dL (6.4-8.2)
[2025-09-07 22:37] VITALS: BP 143/74
[2025-09-07] MEDS ORDERED: RX Prepack 2 Tabs Ondansetron ODT 4MG UD ONE (23:35)
== END 2025-09-07 23:44 | disposition home or self-care (01) ==
LOC: ER 21:15
PROVIDERS: Emergency Medicine
DX: S00.03XA Contusion of scalp, initial encounter (principal); I11.0 Hypertensive heart disease with heart failure; I50.42 Chronic combined systolic (congestive) and diastolic (congestive) heart failure; I48.91 Unspecified atrial fibrillation; E03.9 Hypothyroidism, unspecified; J45.909 Unspecified asthma, uncomplicated; Z88.0 Allergy status to penicillin; Z91.81 History of falling; Z95.2 Presence of prosthetic heart valve; Z88.1 Allergy status to other antibiotic agents; Z79.01 Long term (current) use of anticoagulants; Z79.890 Hormone replacement therapy; Z79.899 Other long term (current) drug therapy; W18.30XA Fall on same level, unspecified, initial encounter
CPT/HCPCS: 70450; 72125; 80053; 85025; 85610; 90471; 90715; 93005; 93010; 99284-25; A9270